=== PATIENT | male | born 1985 | race Caucasian/White ===

== ENCOUNTER 2020-12-13 17:13 | Emergency (ER) | payer OTHER ==
[2020-12-13 18:19] LABS: BASOPHIL 0.5 % (0-2); EOSINOPHIL 0.5 % (0-5); HGB 15.1 g/dl (13.2-18.0); LYMPHOCYTE 32.1 % (15-48); MCH 29.7 pg (25.0-31.0); MCHC 32.8 g/dL (32.0-36.0); MCV 90.6 fL (78.0-100.0); MONOCYTE 12.9 % (0-12); MPV 8.8 fL (6.0-9.5); NEUTROPHIL 53.8 % (41-80); NRBC 0; PLT 239 K/uL (150-400); RBC 5.08 M/uL (4.70-6.00); RDW 14.3 % (11.5-14.0); WBC 5.6 K/uL (4.0-10.5)
[2020-12-13 18:32] LABS: BUN/CREAT RATIO (CALC) 14.6 RATIO; CREATININE 0.89 mg/dL (0.67-1.17); POTASSIUM 4.1 mmol/L (3.5-5.1)
[2020-12-13] MEDS ORDERED: VENTOLIN HFA IN18 GM INH (22:37)
== END 2020-12-13 23:05 | disposition home or self-care (01) ==
LOC: FER 17:13
PROVIDERS: Nurse Practitioner Family
DX: U07.1 COVID-19 (principal); J12.82 Pneumonia due to coronavirus disease 2019; Z23 Encounter for immunization
CPT/HCPCS: 36415; 71045; 80048; 85025; 94010; J1100; J7030; M0243; Q0244